=== PATIENT | female | born 1995 | race Caucasian/White ===

== ENCOUNTER 2019-01-28 13:32 | Emergency (ER) | payer BC, SELFPAY ==
[2019-01-28 13:34] VITALS: BP 128/64; PULSE 66; RESP 16; TEMP 36.8; O2SAT 99; BMI 24.3
[2019-01-28] MEDS: Naproxen 500 MG Tablet PO (13:57)
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
== END 2019-01-28 15:11 | disposition home or self-care (01) ==
LOC: ED 14:06
PROVIDERS: Emergency Provider Emergency Medicine
DX: S09.93XA Unspecified injury of face, initial encounter (principal); V43.62XA Car passenger injured in collision with other type car in traffic accident, initial encounter; Y93.9 Activity, unspecified; Y92.410 Unspecified street and highway as the place of occurrence of the external cause; Y99.8 Other external cause status
CPT/HCPCS: 99283